=== PATIENT | female | born 1985 | race Caucasian/White ===

== ENCOUNTER 2019-12-02 12:13 | Emergency (ER) | payer BC ==
[~2019-12-02] VITALS: Ht 170.2 cm; Wt 86.4 kg
[~2019-12-02 12:13] MED LIST: PRENATAL1 TA1 PO
[2019-12-02 12:53] VITALS: TEMP 98.1
[2019-12-02 14:38] LABS: COLLECTION METHOD CLEAN CATCH
[2019-12-02 14:44] LABS: BASO # 0.1 (0.0-0.2); BASO % 0.6 % (0.0-2.0); EOS # 0.4 (0.0-0.7); EOS % 3.9 % (0-4.0); GRAN # 8.1 (1.4-6.5); GRAN % 73.1 % (42.2-75.2); HEMATOCRIT 45.8 % (37.0-47.0); HEMOGLOBIN 15.4 g/dl (12.5-16.0); LYMPH # 1.8 (1.2-3.4); LYMPH % 15.9 % (20.0-51.0); MEAN CELL VOLUME 87 fl (80.0-100.0); MEAN CORPUSCULAR HEMOGLOBIN 29 pg (27.0-31.0); MEAN CORPUSCULAR HGB CONC 34 g/dl (33.0-37.0); MEAN PLATELET VOLUME 9.3 fl (7.4-10.4); MONO # 0.7 (0.1-0.6); MONO % 6.1 % (1.7-9.3); PLATELET COUNT 368 K/mm3 (130-400); RED BLOOD COUNT 5.28 M/mm3 (4.10-5.30); REDCELL DISTRIBUTION WIDTH-CV 11.9 % (11.5-14.5)
[2019-12-02 14:46] LABS: INR 1.1 (0.8-3.0); PROTHROMBIN TIME 13.3 SECONDS (9.7-12.8)
[2019-12-02 14:47] LABS: MUCOUS Present /lpf; PH 5 (5-8); SQUAMOUS EPITHELIAL 0-2 /hpf; URINE APPEARANCE Clear; URINE BACTERIA None Seen /hpf; URINE BILIRUBIN Negative (NEGATIVE); URINE BLOOD Negative (NEGATIVE); URINE COLOR Yellow; URINE GLUCOSE Negative (NEGATIVE); URINE KETONE 2+ (NEGATIVE); URINE LEUKOCYTE ESTERASE Negative (NEGATIVE); URINE NITRATE Negative (NEGATIVE); URINE PROTEIN(semi-quant) Negative (NEGATIVE); URINE RBC 0-2 /hpf; URINE UROBILINOGEN Negative (NEGATIVE)
[2019-12-02 14:56] LABS: ALANINE AMINOTRANSFERASE 23 U/L (9-52); ALKALINE PHOSPHATASE 96 U/L (50-136); ANION GAP 12 mmol/L (7-16); AST,SGOT 27 U/L (15-37); BILIRUBIN,TOTAL 0.4 mg/dL (0.0-1.0); BLOOD UREA NITROGEN 14 mg/dL (7-17); CALCIUM 10.1 mg/dL (8.4-10.2); CARBON DIOXIDE 25 mmol/L (22-30); CHLORIDE 104 mmol/L (98-107); CREATININE, serum 0.79 (0.52-1.25); GLUCOSE 81 mg/dL (74-106); LIPASE 74 U/L (23-300); POTASSIUM 4.1 mmol/L (3.4-5.0); SODIUM 142 mmol/L (137-145); TOTAL PROTEIN 8.4 gm/dL (6.4-8.2)
[2019-12-02 15:27] LABS: TROPONIN-I < 0.012 ng/mL (0.000-0.035)
[2019-12-02 16:13] VITALS: BP 123/84; PULSE 86
== END 2019-12-02 16:15 | disposition home or self-care (01) ==
LOC: COL.ER 12:13
PROVIDERS: Nurse Practitioner Primary Care
DX: R07.89 Other chest pain (principal); F41.9 Anxiety disorder, unspecified; F32.9 Major depressive disorder, single episode, unspecified; Z90.89 Acquired absence of other organs
CPT/HCPCS: J7030